=== PATIENT | female | born 1935 | race Caucasian/White ===

== ENCOUNTER 2019-09-05 00:15 | Emergency (ER) | payer OTHER ==
[~2019-09-05] VITALS: Ht 162.6 cm; Wt 76.7 kg
[~2019-09-05 00:15] MED LIST: ARICEPT; ASA81 MG PO; CALTRATE-600600 MG PO; FLUCONAZOLE150 MG PO; FOSAMAX; LANTUS; LESINOPRIL; NEURONTIN; NOVOLOG; PLAVIX; PREDNISONE5 MG/DOSE- PO; SINGULAIR; ULTRAM50 MG PO; ZOCOR
[2019-09-05] MEDS ORDERED: NOVOLIN 70100 UNIT/1 (00:22)
[2019-09-05] MEDS ORDERED: MIRTAZAPINE15 M1 (00:23)
[2019-09-05] MEDS ORDERED: LASIX20 MG (00:23)
[2019-09-05] MEDS ORDERED: NAMENDA10 MG (00:23)
[2019-09-05] MEDS ORDERED: NEURONTIN300 MG (00:23)
[2019-09-05] MEDS ORDERED: TYLENOL ARTHRI650 MG (00:23)
== END 2019-09-05 07:03 | disposition home or self-care (01) ==
LOC: ER 00:15
DX: S01.02XA Laceration with foreign body of scalp, initial encounter (principal); G30.8 Other Alzheimer's disease; F02.80 Dementia in other diseases classified elsewhere, unspecified severity, without behavioral disturbance, psychotic disturbance, mood disturbance, and anxiety; I10 Essential (primary) hypertension; W18.09XA Striking against other object with subsequent fall, initial encounter; Y93.E1 Activity, personal bathing and showering; Y92.012 Bathroom of single-family (private) house as the place of occurrence of the external cause; Y99.8 Other external cause status

== ENCOUNTER 2019-09-14 05:34 | Emergency (ER) | payer OTHER ==
[~2019-09-14] VITALS: Ht 165.1 cm; Wt 76.7 kg
[~2019-09-14 05:34] MED LIST changes: +LASIX20 MG; +MIRTAZAPINE15 M1; +NAMENDA10 MG; +NEURONTIN300 MG; +NOVOLIN 70100 UNIT/1; +TYLENOL ARTHRI650 MG
== END 2019-09-14 13:41 | disposition designated cancer center or children's hospital (05) ==
LOC: ER 05:34 → CPU-OBS 05:38 → ER 05:38
DX: S06.6X0A Traumatic subarachnoid hemorrhage without loss of consciousness, initial encounter (principal); S01.02XA Laceration with foreign body of scalp, initial encounter; I95.89 Other hypotension; J90 Pleural effusion, not elsewhere classified; R53.1 Weakness; G30.8 Other Alzheimer's disease; F02.80 Dementia in other diseases classified elsewhere, unspecified severity, without behavioral disturbance, psychotic disturbance, mood disturbance, and anxiety; W18.09XA Striking against other object with subsequent fall, initial encounter; Y93.89 Activity, other specified; Y92.011 Dining room of single-family (private) house as the place of occurrence of the external cause; Y99.8 Other external cause status

== ENCOUNTER 2019-11-29 18:07 | Inpatient (IN) | payer OTHER ==
[~2019-11-29] VITALS: Ht 165.1 cm; Wt 70.3 kg
[2019-11-29] MEDS ORDERED: PLAVIX75 MG PO (18:37)
[2019-11-29] MEDS ORDERED: ZOCOR40 MG PO (18:38)
--- NOTE | 2019-11-29 18:38 | NUR ---
PACIENTE ALERTA Y ORIENTADA EN VELIA YASMIN ESFERAS, REFIERE EVACUACIONES CON TRINI DESDE EL SABADO. HIJA PRESENTA FOTOGRAFIA DONDE SE OBSERVA SANGRADO COLOR DUGGAN EN PANAL DE LO QUE REFIERE ES EL PANAL DE LA PACIENTE. PACIENTE LLEGA A ER CON ULCERAS EN AMBOS TALONES, HIJA REFIERE QUE HOY LE REALIZARON CURACIONES, PACIENTE LLEGA CON VENDAJES.
--- NOTE | 2019-11-29 22:11 | NUR ---
EVALUA PTE. SE ORIENTA A PTE SOBRE [place] MEDICO. PTE REFIERE COMPRENDER. SE REALIZAN MUESTRAS DE LABORATORIO BAJO MEDIDAS ASEPTICAS. SE ADMINISTRAN MEDICAMENTOS TAHIR ORDEN MEDICA. SE NOTIFICA CT.
--- NOTE | 2019-11-30 08:11 | NUR ---
SE RECIBE PTE FEMENINA DE 84 YRS ALERTA CONCIENTE Y TRANQUILO EN COMPANIA DE FAMILIAR/ PTE EN ESPERA DE MEDICO CONSULTO DR.DIAZ CONDE LA CUAL SE MANTIENE NOTIFICADO Y SE LE DA SEGUIMIENTO. SE MANTIENE CON IVF PATENTE Y AKOSUA DE EDEMA SE MANTIENE BAJO OBSERVACION.
== END 2019-12-02 15:12 | disposition home or self-care (01) | DRG 377 ==
LOC: ER 18:07 → SEC-K 11-30 10:23 → MEDJ 11-30 12:06
PROVIDERS: ADMIT Internal Medicine
PROC: BW21Y0Z Computerized Tomography (CT Scan) of Abdomen and Pelvis using Other Contrast, Unenhanced and Enhanced (ICD-10-PCS; 2019-11-30)
PROC: B54DZZZ Ultrasonography of Bilateral Lower Extremity Veins (ICD-10-PCS; 2019-11-30)
PROC: 0DJ08ZZ Inspection of Upper Intestinal Tract, Via Natural or Artificial Opening Endoscopic (ICD-10-PCS; principal; 2019-12-01)
PROC: BW28ZZZ Computerized Tomography (CT Scan) of Head (ICD-10-PCS; 2019-12-01)
DX: K57.33 Diverticulitis of large intestine without perforation or abscess with bleeding (principal); J18.1 Lobar pneumonia, unspecified organism; J90 Pleural effusion, not elsewhere classified; L97.412 Non-pressure chronic ulcer of right heel and midfoot with fat layer exposed; K80.80 Other cholelithiasis without obstruction; K31.819 Angiodysplasia of stomach and duodenum without bleeding; G30.0 Alzheimer's disease with early onset; F02.80 Dementia in other diseases classified elsewhere, unspecified severity, without behavioral disturbance, psychotic disturbance, mood disturbance, and anxiety; S06.6X9S Traumatic subarachnoid hemorrhage with loss of consciousness of unspecified duration, sequela; E11.621 Type 2 diabetes mellitus with foot ulcer; E11.65 Type 2 diabetes mellitus with hyperglycemia; Z79.4 Long term (current) use of insulin